=== PATIENT | female | born 1945 | race Caucasian/White ===

== ENCOUNTER 2017-01-26 18:00 | Inpatient (IN) | payer OTHER ==
[~2017-01-26] VITALS: Ht 170.2 cm; Wt 81.2 kg
[~2017-01-26 18:00] MED LIST: ADV100/50 INH; AMLODIPINE BESY10 M1 PO; BACDS PO; COL100 PO; COLACE100 MG PO; COZAAR100 MG PO; DOLOPHINE HCL10 MG PO; DUONEB3 ML NEB; GLU5 PO; GLYBURIDE5 MG PO; HYDROCODONE/ACE1 TA2; IPRATROPIUM BROM3 M2 HHN; LAC PO; LEVAQUIN750 MG PO; MEDDP PO; OXYBUTYNIN CHLOR5 MG PO; PREDNISONE1 MG PO; PROBIOTIC FORMU1 CA1 PO; ROB750 PO; ROX5 PO; SYMBICORT1 AE2 INH; THERAGRAN-M1 TA4 PO; TRAZODONE50 M1 PO; ZES10 PO; ZITHROMAX1 GM/Packe
[2017-01-26 18:56] LABS: BASOPHIL % 0.3 % (0-2); PLATELET COUNT 141 x10^3mcL (130-400)
[2017-01-26 18:59] LABS: RED CELL DISTRIBUTION WIDTH 15.4 % (11.5-14.5)
[2017-01-26 19:07] LABS: CALCIUM 8.9 mg/dL (8.5-10.1); CARBON DIOXIDE 26.9 mmol/L (21-32); CREATININE SERUM 1.5 mg/dL (0.6-1.0); POTASSIUM SERUM 3.7 mmol/L (3.5-5.1)
[2017-01-26 19:12] LABS: ALBUMIN 4.1 g/dL (3.4-5.0); BILIRUBIN TOTAL 0.37 mg/dL (0.20-1.00); T4(THYROXINE) 8.4 ug/dL (4.7-13.3)
[2017-01-26 19:54] LABS: microscopic required? YES; urine erythrocyte NEGATIVE (NEGATIVE)
[2017-01-26 20:02] LABS: AMPHETAMINE QUAL UR NONE DETECTED (NEG <=1000)
[2017-01-26 20:30] LABS: FREE T4 0.91 ng/dL (0.76-1.46); FREE THYROXINE INDEX 2.4 ug/dL (1.4-4.5); T4(THYROXINE) 7.3 ug/dL (4.7-13.3)
[2017-01-26 20:35] LABS: T3 TOTAL 1.07 ng/mL
[2017-01-26 20:55] VITALS: BP 106/55
[2017-01-26 21:47] VITALS: BP 106/55
[2017-01-27 03:04] LABS: CALCIUM 8.1 mg/dL (8.5-10.1); CARBON DIOXIDE 27.5 mmol/L (21-32); CREATININE SERUM 1.1 mg/dL (0.6-1.0); POTASSIUM SERUM 3.9 mmol/L (3.5-5.1)
[2017-01-27 03:27] LABS: BASOPHIL % 0.5 % (0-2); PLATELET COUNT 80 x10^3mcL (130-400); RED CELL DISTRIBUTION WIDTH 15.7 % (11.5-14.5)
[2017-01-27 05:34] VITALS: BP 111/54
[2017-01-27 09:23] VITALS: BP 112/62; BP 146/56
[2017-01-27 09:24] VITALS: BP 111/54
[2017-01-27 13:18] VITALS: BP 106/59
[2017-01-27 16:44] VITALS: BP 123/59
[2017-01-27 22:00] VITALS: BP 96/51
[2017-01-28 00:59] VITALS: BP 103/51
[2017-01-28 05:14] VITALS: BP 102/39
[2017-01-28 07:19] LABS: CALCIUM 8.5 mg/dL (8.5-10.1); CHLORIDE SERUM 106 mmol/L (98-107); CREATININE SERUM 0.9 mg/dL (0.6-1.0); GFR1 > 60 mL/min; GLUCOSE SERUM 96 mg/dL (74-106); POTASSIUM SERUM 4.1 mmol/L (3.5-5.1); SODIUM SERUM 140 mmol/L (136-145)
[2017-01-28 10:24] VITALS: BP 110/56
[2017-01-28 11:09] LABS: BASOPHIL % 0.6 % (0-2); PLATELET COUNT 121 x10^3mcL (130-400); RED CELL DISTRIBUTION WIDTH 15.5 % (11.5-14.5)
[2017-01-28 13:12] VITALS: BP 104/48
[2017-01-28 17:15] VITALS: BP 99/61
[2017-01-28 21:43] VITALS: BP 122/54
[2017-01-29 05:36] VITALS: BP 119/52
[2017-01-29 07:00] LABS: BASOPHIL % 0.3 % (0-2)
[2017-01-29 07:06] LABS: PLATELET COUNT 103 x10^3mcL (130-400); RED CELL DISTRIBUTION WIDTH 15.4 % (11.5-14.5)
[2017-01-29] MEDS ORDERED: SEN PO (09:38)
[2017-01-29] MEDS ORDERED: ROBAXIN-750750 MG PO (09:39)
[2017-01-29] MEDS ORDERED: DIFLUCAN200 MG PO (09:40)
[2017-01-29 09:46] VITALS: BP 98/55
[2017-01-29] MEDS ORDERED: COR6 PO (09:50)
[2017-01-29 13:29] VITALS: BP 114/48
[2017-01-29 15:08] VITALS: BP 114/48
== END 2017-01-29 16:48 | disposition home or self-care (01) | DRG 689 ==
LOC: ED 18:00 → DU 19:30
PROVIDERS: Emergency Medicine; Internal Medicine Gastroenterology; ADMIT Family Medicine
PROC: 0DD68ZX Extraction of Stomach, Via Natural or Artificial Opening Endoscopic, Diagnostic (ICD-10-PCS; principal; 2017-01-28 13:30)
DX: N39.0 Urinary tract infection, site not specified (principal); N17.0 Acute kidney failure with tubular necrosis; D68.69 Other thrombophilia; R55 Syncope and collapse; K22.8 Other specified diseases of esophagus; S40.022A Contusion of left upper arm, initial encounter; R13.10 Dysphagia, unspecified; M50.122 Cervical disc disorder at C5-C6 level with radiculopathy; E83.51 Hypocalcemia; I12.9 Hypertensive chronic kidney disease with stage 1 through stage 4 chronic kidney disease, or unspecified chronic kidney disease; N18.3 Chronic kidney disease, stage 3 (moderate); D32.0 Benign neoplasm of cerebral meninges; E11.65 Type 2 diabetes mellitus with hyperglycemia; E78.00 Pure hypercholesterolemia, unspecified; D64.9 Anemia, unspecified; J45.909 Unspecified asthma, uncomplicated; Z68.28 Body mass index [BMI] 28.0-28.9, adult; Z98.1 Arthrodesis status; Z79.4 Long term (current) use of insulin; W18.39XA Other fall on same level, initial encounter; Y92.000 Kitchen of unspecified non-institutional (private) residence as the place of occurrence of the external cause
CPT/HCPCS: 43235; 82962; 83880; 84439; 92610; 94150; J0696; J1200; J1450; J1610; J2250; J2270; J2310; J2405; J2800; J3010; J3490; J7030; J7042; J7620; J7633; Q0092